=== PATIENT | male | born 1955 | race African-American/Black ===

== ENCOUNTER → 2020-05-14 | Outpatient (CLI) | payer OTHER | LOC: LAB 16:01 | PROVIDERS: ATTEND Internal Medicine Gastroenterology | DX: Z01.812 Encounter for preprocedural laboratory examination (principal); Z12.11 Encounter for screening for malignant neoplasm of colon; Z20.828 Contact with and (suspected) exposure to other viral communicable diseases | CPT/HCPCS: U0003 ==

== ENCOUNTER → 2020-05-21 | Outpatient (CLI) | payer OTHER, MEDICARE | LOC: LAB 10:58 | PROVIDERS: ATTEND Internal Medicine Gastroenterology | DX: Z01.812 Encounter for preprocedural laboratory examination (principal); Z20.828 Contact with and (suspected) exposure to other viral communicable diseases | CPT/HCPCS: U0003 ==

== ENCOUNTER → 2020-05-24 | Day surgery (SDC) | payer OTHER, MEDICARE ==
[~2020-05-24] MED LIST: AMLO-186 PO; APIX5TAB PO; ASPI-630 PO; CARV6.25 PO; IV RINGERS,LACTATED 1000ML 1,000 ML IV SCH; LIDOCAINE 2% PF 5 ML VIAL. ONE; MYCO250C PO; OMEP20TA63 PO; PRED2.5T PO; PROPOFOL 10 MG/ML (20ML) VIAL. IV ONE; SITA50TA PO; TACR0.5C2 PO
--- NOTE | 2020-05-24 14:31 | PDOC4 ---
PROCEDURE Procedure Colon with cold snare/clip Indication: colorectal cancer screening Meds: per anesthesia Findings: JAVIER---surgically absent prostate. --"Scope advanced to cecum. Mucosa normal. Diverticulosis throughout. 10mm polyp, mid-transverse, removed with cold snare; some bleeding and clipped x 1 with cessation. Internal hemorrhoids on retroflex. Sawyer. well. IMP: One polyp, removed. Diverticulosis Internal hemorrhoids. REC: Resume meds, diet. Await path. F/u in 2 weeks. Repeat exam in 5 years. NADEEM AYALA MD May 24, 2020 14:31
[2020-05-24 15:00] VITALS: BP 108/69
--- NOTE | 2020-05-27 15:08 | PATHOLOGY ---
[facility] Accession Number: [id number] . 01 Material submitted: . colon - MID TRANSVERSE COLON POLYP. Modifiers: mid, transverse . 01 Clinical history: . SCREENING . 02 Diagnosis: Colon biopsies, mid transverse colon polyp: - Tubular adenoma. (JPM:[facility]; 05/27/2020) S 05/27/2020 1044 Local . 02 Comment: There is no high grade dysplasia or evidence of malignancy. (JPM:[facility]; 05/27/2020) . 02 Electronically signed: . Alexis Brand MD, Pathologist NPI- [id number] . 01 Gross description: . The specimen is received in formalin, labeled "Matt Haroldo, mid transverse colon polyp". Received are two segments of pale trujillo soft tissue ranging in size from 0.3 to 0.6 cm in maximum dimensions. The specimen is submitted entirely in cassette A1. ([facility]; 05/26/2020) QA/[facility] 05/26/2020 1333 Local . 02 Pathologist provided ICD-10: D12.3 . 02 CPT . 192163 Specimen Comment: A courtesy copy of this report has been sent to [phone] Specimen Comment: 1112 Specimen Comment: Report sent to / DR GOODMAN Performed at: 01 [facility] [address], [place] [id number] MD Rj Muse MD Phone: [phone] Performed at: 02 [facility] [address] [place], [place] [id number] MD Alexis Brand MD Phone: [phone]
== END | disposition home or self-care (01) ==
LOC: ENDOS 13:10
PROVIDERS: ATTEND Internal Medicine Gastroenterology
DX: Z12.11 Encounter for screening for malignant neoplasm of colon (principal); D12.3 Benign neoplasm of transverse colon; K64.0 First degree hemorrhoids; K57.30 Diverticulosis of large intestine without perforation or abscess without bleeding; K21.9 Gastro-esophageal reflux disease without esophagitis; K63.89 Other specified diseases of intestine; I10 Essential (primary) hypertension; E78.00 Pure hypercholesterolemia, unspecified; E11.9 Type 2 diabetes mellitus without complications; M19.90 Unspecified osteoarthritis, unspecified site; Z79.82 Long term (current) use of aspirin; Z79.84 Long term (current) use of oral hypoglycemic drugs; Z79.899 Other long term (current) drug therapy; Z72.89 Other problems related to lifestyle; Z87.891 Personal history of nicotine dependence; Z98.890 Other specified postprocedural states; Z86.010 Personal history of colon polyps; Z90.79 Acquired absence of other genital organ(s)
CPT/HCPCS: 45385; 88305; J2704; 45384

== ENCOUNTER → 2020-06-18 | Outpatient (CLI) | payer OTHER, MEDICARE ==
[2020-05-24 15:00] VITALS: BP 108/69
[~2020-06-18] MED LIST changes: -IV RINGERS,LACTATED 1000ML 1,000 ML IV SCH; -LIDOCAINE 2% PF 5 ML VIAL. ONE; -PROPOFOL 10 MG/ML (20ML) VIAL. IV ONE
== END ==
LOC: LAB 15:41
PROVIDERS: ATTEND Internal Medicine Gastroenterology
DX: Z01.812 Encounter for preprocedural laboratory examination (principal); R13.10 Dysphagia, unspecified; Z20.828 Contact with and (suspected) exposure to other viral communicable diseases
CPT/HCPCS: U0003

== ENCOUNTER → 2020-06-21 | Day surgery (SDC) | payer OTHER, MEDICARE ==
[~2020-06-21] MED LIST changes: +IV RINGERS,LACTATED 1000ML 1,000 ML IV SCH; +LIDOCAINE 2% PF 5 ML VIAL. ONE; +PROPOFOL 10 MG/ML (20ML) VIAL. IV ONE
--- NOTE | 2020-06-21 12:53 | PDOC1 ---
History and Physical Date of Admission Date of Admission DATE: 06/21/20 TIME: 12:45 Identification/Chief Complaint Chief Complaint Dysphagia Source Source: Chart review, Patient History of Present Illness History of Present Illness Intermittent dysphagia. History of heartburn; currently on PPI. Some improvement, but not total. Remotely had EGD; findings not recalled as serious. H/o HCV, successfully treated at . H/o colon polyp 2008. Past Medical History Cardiovascular: HTN, Hyperlipidemia Renal/: Chronic renal failure (post-transplant) Endocrine: Diabetes Past Surgical History Past Surgical History: Other (kidney transplant) Family History Family History Nothing GI-related. Social History Smoke: No ALCOHOL: rare Drugs: None Current Medications Current Medications Current Medications Ringer's Solution 1,000 ml @ 50 mls/hr Q20H IV ; Start 06/21/20 at 07:15; Stop 06/21/20 at 19:14 Active Scripts Active Reported Coreg (Carvedilol) 6.25 Mg Tablet 6.25 Mg PO BIDWMEALS Prednisone 2.5 Mg Tablet 5 Mg PO DAILY Eliquis (Apixaban) 5 Mg Tablet 5 Mg PO DAILY Aspirin 81 Mg Tab.chew 1 Tab PO DAILY Januvia (Sitagliptin Phosphate) 50 Mg Tablet 25 Mg PO DAILY Prilosec Otc (Omeprazole Magnesium) 20 Mg Tablet.dr 1 Tab PO DAILY 30 Days Amlodipine Besylate 5 Mg Tablet 5 Mg PO DAILY Cellcept (Mycophenolate Mofetil) 250 Mg Capsule 2 Cap PO BID Tacrolimus 0.5 Mg Capsule 0.5 Mg PO BID Allergies Allergies: Coded Allergies: No Known Drug Allergies (Unverified , 05/24/20) ROS Review of System Otherwise negative. Physical Exam General: Alert, Oriented X3, Cooperative, No acute distress HEENT: PERRLA, EOMI Lungs: Clear to auscultation Heart: S1S2, RRR, no gallops, no murmurs Abdomen: Normal bowel sounds, Soft, No tenderness, No hepatosplenomegaly, No masses Rectal Exam: deferred Extremities: No clubbing, No cyanosis, No edema Skin: No significant lesion Neuro: Normal gait, Normal speech, Strength at 5/5 X4 ext, Normal tone, Sensa tion intact, Cranial nerves 3-12 NL, Reflexes 2+ Psych/Mental Status: Mental status NL, Mood NL Vitals Vitals See nursing notes. VTE Prophylaxis Ordered VTE Prophylaxis Devices: No VTE Pharmacological Prophylaxi: No Assessment/Plan Assessment/Plan IMP: Dysphagia PLAN: EGD. NADEEM AYALA MD Jun 21, 2020 12:53
--- NOTE | 2020-06-21 13:54 | PDOC4 ---
PROCEDURE Procedure EGD Indication: dysphagia Meds: per anesthesia Findings: E--Healing reflux at 45cm, probably B-C at baseline. G--Scattered erosions, antrum. Biopsies taken. D--Normal to second portion. --as did not hold his Eliquis, no empiric dilation. Sawyer. well. IMP: GERD Non-specific antral erosions. REC: Continue PPI. Await biopsies. F/u in 2 weeks. Resume diet, other meds. NADEEM AYALA MD Jun 21, 2020 13:54
[2020-06-21 14:17] VITALS: BP 128/78
--- NOTE | 2020-06-24 15:08 | PATHOLOGY ---
[facility] Accession Number: [id number] . 01 Material submitted: . stomach - ANTRAL BIOPSY . 01 Clinical history: . DYSPHAGIA . 02 Diagnosis: Gastric biopsies, antrum: - Chronic gastritis, mild, focally active, with focal intestinal metaplasia. (JPM:[facility] 06/24/2020) [facility] 06/24/2020 0910 Local . 02 Comment: Sections of the gastric biopsy reveal segments of gastric antral/body transition mucosa showing congestion and focally active mild chronic inflammation. There is focal intestinal metaplasia. A properly controlled immunoperoxidase stain for Helicobacter is negative for Helicobacter organisms. (JPM:[facility] 06/24/2020) . Special stain performed: Immunoperoxidase stain for Helicobacter on A1. . 02 Electronically signed: . Alexis Brand MD, Pathologist NPI- [id number] . 01 Gross description: . The specimen is received in formalin, labeled "Haroldo, Matt, antral BX" and consists of 2 fragments of pink-trujillo tissue measuring 0.5 x 0.2 cm and 0.8 x 0.2 cm which are entirely submitted in A1. ([facility]; 06/23/2020) SYU/SYU 06/23/2020 1711 Local . 02 Pathologist provided ICD-10: K29.50 . 02 CPT . 247520, C99472 Specimen Comment: A courtesy copy of this report has been sent to [phone] Specimen Comment: 1112 Specimen Comment: Report sent to / DR GOODMAN Performed at: 01 [facility] [address], [place], [place] [id number] MD Rj Muse MD Phone: [phone] Performed at: [address] [facility] [address] [place], [place] [id number] MD Alexis Brand MD Phone: [phone]
== END | disposition home or self-care (01) ==
LOC: ENDOS 12:38
PROVIDERS: ATTEND Internal Medicine Gastroenterology
DX: R13.10 Dysphagia, unspecified (principal); K21.00 Gastro-esophageal reflux disease with esophagitis, without bleeding; K31.89 Other diseases of stomach and duodenum; K29.50 Unspecified chronic gastritis without bleeding; I10 Essential (primary) hypertension; E78.00 Pure hypercholesterolemia, unspecified; E11.9 Type 2 diabetes mellitus without complications; Z87.891 Personal history of nicotine dependence; Z79.899 Other long term (current) drug therapy; Z79.84 Long term (current) use of oral hypoglycemic drugs; Z79.82 Long term (current) use of aspirin; Z98.890 Other specified postprocedural states; Z72.89 Other problems related to lifestyle
CPT/HCPCS: 43239; J2704; 88305; 88342

== ENCOUNTER → 2020-07-30 | Outpatient (CLI) | payer OTHER, MEDICARE ==
[2020-06-29 19:50] VITALS: BP 177/91
[~2020-07-30] MED LIST changes: +AMLO10TA4 PO; +ATOR20TA58 PO; +CARV25TA PO; +HYDR-2761 PO; -IV RINGERS,LACTATED 1000ML 1,000 ML IV SCH; -LIDOCAINE 2% PF 5 ML VIAL. ONE; +MAGN400T5 PO; +MYCOPHENOLIC ACID; +OMEP40CA7 PO; +PRED-220 PO; -PROPOFOL 10 MG/ML (20ML) VIAL. IV ONE
== END ==
LOC: LAB 15:15
PROVIDERS: ATTEND Specialist
DX: Z01.812 Encounter for preprocedural laboratory examination (principal); Z20.828 Contact with and (suspected) exposure to other viral communicable diseases
CPT/HCPCS: U0003

== ENCOUNTER 2020-08-04 07:33 | Day surgery (SDC) | payer MEDICARE, OTHER ==
[~2020-08-04] VITALS: Ht 190.5 cm; Wt 102.1 kg
--- NOTE | 2020-08-04 06:55 | PREOP HP ---
DATE OF SERVICE: 07/21/2020 HISTORY OF PRESENT ILLNESS: The patient comes in with recurrent pain on the medial portion of the left buttock and also the left groin, this is recurrent. He gets these abscesses, they rupture and cause a lot of pain and discomfort and interferes with his job. PAST MEDICAL HISTORY: Shows a pilonidal surgery done many years ago, but he still has his abscess. He also has had 2 years ago kidney transplant, and about 6 years ago, had a coronary bypass surgery for four bad arteries. He is doing well since then and is on Eliquis and aspirin at the present time. He has no other diseases to his knowledge. MEDICATIONS: He takes no other medication. ALLERGIES: He has no allergies. SOCIAL HISTORY: Shows that he does not smoke, drink or use illicit drugs. FAMILY HISTORY: There is no family history. REVIEW OF SYSTEMS: Presently is negative, but he does have a history of recurrent pain in the left groin and left medial buttock. PHYSICAL EXAMINATION: GENERAL: Shows an alert male, in no acute distress. HEAD, EYES, NOSE AND THROAT: Grossly normal. CHEST: Clear to auscultation. HEART: Had no murmurs, heaves, or friction rubs. ABDOMEN: Not examined. EXTREMITIES: Grossly normal. BACK: Examination of the back did show on the buttocks about 5-6 cm below the crease on the left side, there is a thickening there. It is not very painful, but there is a definite thickening there. In the left groin, there is also what looks like a chronic sinus tract or infection and is causing pain. These have been drained over and over and they still exist. IMPRESSION: 1. End-stage renal disease. 2. Arteriosclerotic heart disease. 3. Abscess, right groin. 4. Pilonidal cyst. MAURA ANGEL MD DR: DENISE/bryan JOB#: [id number] / [id number] STAN
[~2020-08-04 07:33] MED LIST changes: -AMLO10TA4 PO; -ATOR20TA58 PO; -CARV25TA PO; -HYDR-2761 PO; +HYDROmorphone 2 MG/ML VIAL IVP PRN; +IV RINGERS,LACTATED 1000ML 1,000 ML IV SCH; -MAGN400T5 PO; -MYCOPHENOLIC ACID; -OMEP40CA7 PO; -PRED-220 PO; +PROCHLORPERAZINE 10 MG/2 ML VIAL. IVP PRN; +ceFAZolin SODIUM IV Push 1 GM VIAL. IVP PRN; +fentaNYL PF VIAL 100 MCG/2 ML VIAL IVP PRN
[2020-08-04] MEDS ORDERED: INSULIN LISPRO 100 UNIT/ML 3ML VIAL for OP,RR ONLY. SQ PRN (08:30)
[2020-08-04 08:31] LABS: BASO # 0.1 x10^3/uL (0.0-0.2); BASO % 1 % (0-3); EOS # 0.1 x10^3/uL (0.0-0.7); EOS % 2 % (0-3); HEMATOCRIT 44.4 % (39.0-53.0); LYMPH # 1.9 x10^3/uL (1.0-4.8); LYMPH % 33 % (24-48); MEAN CORPUSCULAR HEMOGLOBIN 29 pg (25-35); MEAN CORPUSCULAR HGB CONC 34 g/dL (31-37); MEAN CORPUSCULAR VOLUME 87 fL (79-100); MONO # 0.5 x10^3/uL (0.0-1.1); MONO % 8 % (0-9); NEUT # 3.1 x10^3/uL (1.8-7.7); NEUT % 56 % (31-73); PLATELET COUNT 143 x10^3/uL (140-400); RED BLOOD COUNT 5.09 x10^6/uL (4.30-5.70); RED CELL DISTRIBUTION WIDTH 15.5 % (11.5-14.5); WHITE BLOOD COUNT 5.6 x10^3/uL (4.0-11.0)
[2020-08-04 08:42] LABS: PROTHROMBIN TIME PATIENT 14.2 SEC (11.7-14.0)
[2020-08-04] MEDS ORDERED: ROCURONIUM 50 MG/5 ML VIAL. ONE (08:50)
[2020-08-04] MEDS ORDERED: fentaNYL PF VIAL 100 MCG/2 ML VIAL ONE ×2 (08:50→11:23)
[2020-08-04] MEDS ORDERED: SUCCINYLCHOLINE 200 MG/10 ML VIAL. ONE (08:50)
[2020-08-04] MEDS ORDERED: PROPOFOL 10 MG/ML (20ML) VIAL. IV ONE ×2 (08:53→10:14)
[2020-08-04] MEDS ORDERED: DEXAMETHASONE SOD PHOS 4 MG/ML VIAL ONE (08:53)
[2020-08-04] MEDS ORDERED: LIDOCAINE 2% PF 5 ML VIAL. ONE (08:53)
[2020-08-04] MEDS ORDERED: ONDANSETRON PF 4 MG/2 ML VIAL. ONE (08:54)
[2020-08-04 08:55] LABS: CALCIUM 9.8 mg/dL (8.5-10.1); CREATININE 1.1 mg/dL (0.7-1.3); GFR 80.8; POTASSIUM 3.5 mmol/L (3.5-5.1)
[2020-08-04 09:00] LABS: ALBUMIN 3.5 g/dL (3.4-5.0); TOTAL BILIRUBIN 0.9 mg/dL (0.2-1.0)
--- NOTE | 2020-08-04 09:08 | PDOC ---
SURGICAL PROGRESS NOTE DATE: 08/04/20 TIME: 09:06 Op Note: Surgeon..........................................Kurt Pre op diag..................................... pilonidal cyst and mass left upper thigh Post op diag....................................same Anesthesia......................................general Procedure.......................................excision pilonidal cyst and excision mass left upper thigh left Drains............................................1/4 inch floyd left thigh wound Blood loss.......................................15cc Fluids.............................................see anesthesia sheet Condition........................................satisfactory Vital Signs Vital Signs Date Time Temp Pulse Resp B/P (MAP) Pulse Ox O2 Delivery O2 Flow Rate FiO2 08/04/20 07:58 68 18 133/81 98 Room Air Labs Laboratory Tests Test 08/04/20 08:10 08/04/20 08:18 White Blood Count 5.6 x10^3/uL (4.0-11.0) Red Blood Count 5.09 x10^6/uL (4.30-5.70) Hemoglobin 15.0 g/dL (13.0-17.5) Hematocrit 44.4 % (39.0-53.0) Mean Corpuscular Volume 87 fL (79-100) Mean Corpuscular Hemoglobin 29 pg (25-35) Mean Corpuscular Hemoglobin Concent 34 g/dL (31-37) Red Cell Distribution Width 15.5 % (11.5-14.5) Platelet Count 143 x10^3/uL (140-400) Neutrophils (%) (Auto) 56 % (31-73) Lymphocytes (%) (Auto) 33 % (24-48) Monocytes (%) (Auto) 8 % (0-9) Eosinophils (%) (Auto) 2 % (0-3) Basophils (%) (Auto) 1 % (0-3) Neutrophils # (Auto) 3.1 x10^3/uL (1.8-7.7) Lymphocytes # (Auto) 1.9 x10^3/uL (1.0-4.8) Monocytes # (Auto) 0.5 x10^3/uL (0.0-1.1) Eosinophils # (Auto) 0.1 x10^3/uL (0.0-0.7) Basophils # (Auto) 0.1 x10^3/uL (0.0-0.2) Prothrombin Time 14.2 SEC (11.7-14.0) Prothromb Time International Ratio 1.1 (0.8-1.1) Activated Partial Thromboplast Time 32 SEC (24-38) Sodium Level 138 mmol/L (136-145) Potassium Level 3.5 mmol/L (3.5-5.1) Chloride Level 103 mmol/L (98-107) Carbon Dioxide Level 26 mmol/L (21-32) Anion Gap 9 (6-14) Blood Urea Nitrogen 18 mg/dL (8-26) Creatinine 1.1 mg/dL (0.7-1.3) Estimated GFR (Cockcroft-Gault) 80.8 BUN/Creatinine Ratio 16 (6-20) Glucose Level 98 mg/dL (70-99) Calcium Level 9.8 mg/dL (8.5-10.1) Total Bilirubin 0.9 mg/dL (0.2-1.0) Aspartate Amino Transf (AST/SGOT) 17 U/L (15-37) Alanine Aminotransferase (ALT/SGPT) 21 U/L (16-63) Alkaline Phosphatase 80 U/L (46-116) Total Protein 7.0 g/dL (6.4-8.2) Albumin 3.5 g/dL (3.4-5.0) Albumin/Globulin Ratio 1.0 (1.0-1.7) Glucose (Fingerstick) 109 mg/dL (70-99) Laboratory Tests Test 08/04/20 08:10 08/04/20 08:18 White Blood Count 5.6 x10^3/uL (4.0-11.0) Red Blood Count 5.09 x10^6/uL (4.30-5.70) Hemoglobin 15.0 g/dL (13.0-17.5) Hematocrit 44.4 % (39.0-53.0) Mean Corpuscular Volume 87 fL (79-100) Mean Corpuscular Hemoglobin 29 pg (25-35) Mean Corpuscular Hemoglobin Concent 34 g/dL (31-37) Red Cell Distribution Width 15.5 % (11.5-14.5) Platelet Count 143 x10^3/uL (140-400) Neutrophils (%) (Auto) 56 % (31-73) Lymphocytes (%) (Auto) 33 % (24-48) Monocytes (%) (Auto) 8 % (0-9) Eosinophils (%) (Auto) 2 % (0-3) Basophils (%) (Auto) 1 % (0-3) Neutrophils # (Auto) 3.1 x10^3/uL (1.8-7.7) Lymphocytes # (Auto) 1.9 x10^3/uL (1.0-4.8) Monocytes # (Auto) 0.5 x10^3/uL (0.0-1.1) Eosinophils # (Auto) 0.1 x10^3/uL (0.0-0.7) Basophils # (Auto) 0.1 x10^3/uL (0.0-0.2) Prothrombin Time 14.2 SEC (11.7-14.0) Prothromb Time International Ratio 1.1 (0.8-1.1) Activated Partial Thromboplast Time 32 SEC (24-38) Sodium Level 138 mmol/L (136-145) Potassium Level 3.5 mmol/L (3.5-5.1) Chloride Level 103 mmol/L (98-107) Carbon Dioxide Level 26 mmol/L (21-32) Anion Gap 9 (6-14) Blood Urea Nitrogen 18 mg/dL (8-26) Creatinine 1.1 mg/dL (0.7-1.3) Estimated GFR (Cockcroft-Gault) 80.8 BUN/Creatinine Ratio 16 (6-20) Glucose Level 98 mg/dL (70-99) Calcium Level 9.8 mg/dL (8.5-10.1) Total Bilirubin 0.9 mg/dL (0.2-1.0) Aspartate Amino Transf (AST/SGOT) 17 U/L (15-37) Alanine Aminotransferase (ALT/SGPT) 21 U/L (16-63) Alkaline Phosphatase 80 U/L (46-116) Total Protein 7.0 g/dL (6.4-8.2) Albumin 3.5 g/dL (3.4-5.0) Albumin/Globulin Ratio 1.0 (1.0-1.7) Glucose (Fingerstick) 109 mg/dL (70-99) Justicifation of Admission Dx: Justifications for Admission: Justification of Admission Dx: Yes MAURA ANGEL MD Aug 04, 2020 09:08
[2020-08-04] MEDS ORDERED: GLYCOPYRROLATE 1 MG/5 ML VIAL. ONE (09:11)
[2020-08-04] MEDS ORDERED: SEVOFLURANE > 120 MINUTES. IH ONE (09:35)
[2020-08-04] MEDS ORDERED: LIDOCAINE 2%/EPI 1:100,000 20 ML VIAL. ONE (09:38)
[2020-08-04] MEDS ORDERED: LIDOCAINE 1% Multi-Dose 20 ML VIAL. ONE (09:39)
[2020-08-04] MEDS ORDERED: PHENYLEPHRINE 10 MG/ML VIAL. ONE (09:42)
[2020-08-04] MEDS ORDERED: OXYTOCIN 10 UNIT/ML VIAL. ONE (09:42)
[2020-08-04] MEDS ORDERED: ceFAZolin SODIUM IV Push 1 GM VIAL. IVP ONE (10:07)
[2020-08-04] MEDS ORDERED: NEOSTIGMINE METHYLSULFATE 5 MG/5 ML SYRINGE. ONE (10:07)
--- NOTE | 2020-08-04 11:22 | DISCH ---
DISCHARGE INSTRUCTIONS Condition on Discharge Condition on Discharge: Stable Activity After Discharge Activity Instructions for Disc: Avoid exertion Diet after Discharge Additional Diet Restrictions: diet as pre op Wound Incision Care Other wound/incision instructi: jose prn keep dry and clean..may shower after 48 hours Follow-Up Follow up with: Make appt to see me in 5 days...Sunday MAURA ANGEL MD Aug 04, 2020 11:22
[2020-08-04] MEDS ORDERED: PROCHLORPERAZINE 10 MG/2 ML VIAL. ONE (11:24)
[2020-08-04] MEDS ORDERED: MORPHINE SULFATE 2 MG/ML VIAL. ONE (11:24)
[2020-08-04] MEDS: fentaNYL PF VIAL 100 MCG/2 ML VIAL IVP PRN ×2 (11:27→11:48)
[2020-08-04] MEDS: MORPHINE SULFATE 2 MG/ML VIAL. IVP PRN ×2 (11:31→11:49)
[2020-08-04] MEDS ORDERED: HYDROcodone/APAP 5/325MG 1 TAB TABLET PO ONE (11:45)
[2020-08-04] MEDS ORDERED: HYDR-2761 PO (11:55)
[2020-08-04 13:06] VITALS: BP 124/66
--- NOTE | 2020-08-04 23:52 | OP ---
DATE OF SURGERY: 08/04/2020 PREOPERATIVE DIAGNOSIS: Pilonidal cyst and right scrotal mass. POSTOPERATIVE DIAGNOSIS: Pilonidal cyst and right scrotal mass. ANESTHESIA: General. SURGEON: Rian Angel M.D. PROCEDURE: Excision of pilonidal cyst and excision mass, left scrotum. TECHNIQUE: Under general anesthesia, the patient was in the prone position to do the pilonidal first as there was no pus purulent material or other things there. He had had previous infections and even surgery there. The involved area, where the thickness was and the last infection was, was just the crease of the buttocks going down on the patient's left side. As such, using a 15 blade and then a 10 blade, we then made an incision encompassing all of the tissue there and the skin widely and carried this down through the skin. We used Metzenbaum scissors to slowly cut all of the tissue away that had been inflamed, infected or scarred there. This went up to the crease of the buttocks where the previous incision was. This area was in the subcutaneous and totally excised. The resultant defect was inspected. Luckily, there were very little bleeding. As such, we then placed 3-0 nylon sutures deep and through and through there. We closed the wound with these interrupted sutures and the procedure was terminated as the dressing was applied. We then placed the patient face up, so that we could do the scrotal mass and properly prepped it and draped it in a normal fashion. There was some purulent material there and this was cultured. This mass extended, was at the superior portion of the scrotum on the left and close to the cord structures. We made an incision encompassing all of the tissue that had been involved in a fusiform fashion. This extended into the subcutaneous and as such, we used a 15 blade to make an incision through the skin. We used Metzenbaum scissors to cut it away from the surrounding structures and it should be noted that this was close to the veins and the artery and these were kept out of the field. The mass, which was about 3-4 cm in size, was then totally excised. The resultant pressure was used to control the bleeding and the procedure was now closed. In this area, it should be noted that cultures were taken and aerobic and anaerobic and also we did place a Eugene drain in this area. We closed the wound with 3-0 nylon sutures and the procedure was terminated as the sterile dressing was applied. The total blood loss was probably 5-6 mL. Fluids given can be obtained from the anesthesia sheet. The drain was the quarter-inch Tatiana drain placed in the scrotum. Condition of the patient was satisfactory as he has returned to the recovery room. RIAN ANGEL MD DR: DENISE/bryan JOB#: [id number] / [id number] STAN
--- NOTE | 2020-08-09 18:10 | PATHOLOGY ---
[facility] Accession Number: [id number] . 01 Material submitted: . PART A: gluteal cleft - PILONIDAL CYST STITCH AT PROXIMAL AREA PART B: inguinal area - LEFT GROIN MASS, STITCH AT PROXIMAL AREA. Modifiers: left . 01 Clinical history: . GLUTEAL ABSCESS, LEFT GROIN MASS . 02 Diagnosis: A. Skin and subcutaneous tissue, pilonidal cyst excision: - Pilonidal sinus, showing chronic inflammation, focal foreign body giant cell reaction, and reactive fibrosis. . B. Skin and subcutaneous tissue, left groin mass excision: - Follicular cyst, ruptured, showing acute and chronic inflammation and reactive fibrosis. (JPM:[facility]; 08/09/2020) S 08/09/2020 1338 Local . 02 Comment: There is no evidence of malignancy. (JPM:[facility]; 08/09/2020) . 02 Electronically signed: . Alexis Brand MD, Pathologist NPI- [id number] . 01 Gross description: . A. The specimen is received in formalin, labeled "Matt Zarco, pilonidal cyst, stitch at proximal area". Received is an irregular excision of harrison-brown skin with attached underlying fibroadipose tissue measuring 4.8 x 2.3 x 2.1 cm in greatest dimensions with a suture placed near one tip designating as the proximal aspect. This tip will further be designated as the 12:00 margin. The surgical margins are inked as follows: 12 to 3:00-yellow, 3 to 6:00-blue, and 6 to 12:00-black. Sectioning reveals pale trujillo to yellow-trujillo cut surfaces throughout with no grossly distinct cyst or sinus tract. The specimen is submitted representatively in cassettes A1 through A4. . B. The specimen is received in formalin, labeled "Matt Zarco, left groin mass, stitch at proximal area". Received is an irregular excision of harrison-brown skin with attached underlying soft tissue measuring 3.0 x 2.5 x 1.4 cm in greatest dimensions with a suture placed at one aspect designating this as the proximal margin, which will further be designated as the 12:00 margin. The surgical margins are inked as follows: 12 to 3:00-yellow, 3 to 6:00-blue, and 6 to 12:00-black. Sectioning reveals a unilocular cystic structure measuring 0.8 cm in length by 0.5 cm in width. The remaining cut surfaces display a pink-harrison to yellow-trujillo appearance. The specimen is submitted representatively in cassettes B1 through B3. ([facility]; 08/06/2020) QA/QA 08/09/2020 1336 Local . 02 Pathologist provided ICD-10: L05.91, L72.8 . 02 CPT . 145020, 300255 Specimen Comment: A courtesy copy of this report has been sent to [phone] Specimen Comment: 1112 Specimen Comment: Report sent to / DR GOODMAN Specimen Comment: A duplicate report has been generated due to demographic updates. Performed at: 01 [facility] [address], [place] [id number] MD Rj Muse MD Phone: [phone] Performed at: 02 [facility] [address] [place], [place] [id number] MD Alexis Brand MD Phone: [phone]
[2020-09-08] MEDS ORDERED: OMEP40CA7 PO (08:44)
[2020-12-10] MEDS ORDERED: MYCOPHENOLIC ACID (06:22)
[2020-12-10] MEDS ORDERED: TACR0.5C2 PO (06:22)
== END 2020-08-04 13:32 | disposition home or self-care (01) ==
LOC: SURG 07:33
PROVIDERS: ATTEND Specialist
DX: L05.91 Pilonidal cyst without abscess (principal); L72.8 Other follicular cysts of the skin and subcutaneous tissue; I12.0 Hypertensive chronic kidney disease with stage 5 chronic kidney disease or end stage renal disease; E11.22 Type 2 diabetes mellitus with diabetic chronic kidney disease; N18.6 End stage renal disease; K21.9 Gastro-esophageal reflux disease without esophagitis; I25.10 Atherosclerotic heart disease of native coronary artery without angina pectoris; E78.00 Pure hypercholesterolemia, unspecified; Z99.2 Dependence on renal dialysis; Z79.899 Other long term (current) drug therapy; Z79.84 Long term (current) use of oral hypoglycemic drugs; Z72.89 Other problems related to lifestyle; Z98.890 Other specified postprocedural states; Z87.891 Personal history of nicotine dependence
CPT/HCPCS: 11424; 11770; 36415; 80053; 82962; 85025; 85610; 85730; 87071; 87075; 88304; A4461; J0330; J0690; J0780; J1100; J2270; J2370; J2405; J2590; J2704; J2710; J3010; J3490; 87076; 87077

== ENCOUNTER 2020-09-07 22:25 | Observation (INO) | payer OTHER, MEDICARE ==
[~2020-09-07] VITALS: Ht 190.5 cm; Wt 104.5 kg
[~2020-09-07 22:25] MED LIST changes: +HYDR-2761 PO; -HYDROmorphone 2 MG/ML VIAL IVP PRN; -IV RINGERS,LACTATED 1000ML 1,000 ML IV SCH; -PROCHLORPERAZINE 10 MG/2 ML VIAL. IVP PRN; -ceFAZolin SODIUM IV Push 1 GM VIAL. IVP PRN; -fentaNYL PF VIAL 100 MCG/2 ML VIAL IVP PRN
--- NOTE | 2020-09-07 22:47 | PHYS DOC ---
Past Medical History Past Medical History: Cancer, High Cholesterol, Hypertension Past Surgical History: Coronary Bypass Surgery Additional Past Surgical Histo: KIDNEY TRANSPLANT Smoking Status: Never Smoker Alcohol Use: Occasionally General Adult EDM: Chief Complaint: CHEST PAIN-CARDIAC NATURE HPI: HPI: 65-year-old male with significant history of hypertension, CAD s/p CABG, AF on Eliquis, ischemic cardiomyopathy s/p [employer] ICD, end-stage renal disease s/p renal transplant, who presents for evaluation of palpitations that began earlier this evening. He states that he developed onset of palpitations without chest pain or dyspnea that began at rest this evening, that resolved prior to presentation. He also reports a similar episode last night, for which he notified EMS. He also states that he believes his defibrillator may have fired last night as well. Palpitations were a/w BL chest pressure, with symptoms resolved by time of my evaluation in the ED. Review of Systems: Review of Systems: Gen: No fever, chills. Eyes: No blurred vision, diplopia. ENT: No nasal congestion, sore throat. CV: No CP. Reports palpitations. Resp. No SOB, cough. GI: No abd pain, N/V. Neuro: No CASTRO, dizziness, weakness. MSK: No myalgia, arthralgia, back pain. Skin: No acute rash or lesion. Remainder of systems reviewed and negative unless otherwise specified. Heart Score: Risk Factors: Risk Factors: DM, Current or recent (<one month) smoker, HTN, HLP, family history of CAD, obesity. Risk Scores: Score 0 - 3: 2.5% MACE over next 6 weeks - Discharge Home Score 4 - 6: 20.3% MACE over next 6 weeks - Admit for Clinical Observation Score 7 - 10: 72.7% MACE over next 6 weeks - Early Invasive Strategies Allergies: Allergies: Allergies Coded Allergies Type Severity Reaction Last Updated Verified No Known Drug Allergies 08/04/20 No Physical Exam: PE: Gen: NAD. Well nourished. Head: NC/AT. Eyes: No scleral icterus. No conjunctival injection. ENT: MMM. Posterior OP clear. Neck: Supple. CV: RRR. Peripheral pulses intact. Chest: Right upper chest device in place. Sternotomy scar. Resp: CTAB. Abd: Soft. NT. ND. MSK: No peripheral cyanosis. Left upper extremity AV fistula, no longer in use. Neuro: A&Ox3. Strength & sensation grossly intact throughout. Skin. Warm. Dry. Psych: Appropriate mood & affect. Current Patient Data: Labs: Laboratory Tests Test 09/07/20 22:40 White Blood Count 6.6 x10^3/uL (4.0-11.0) Red Blood Count 5.12 x10^6/uL (4.30-5.70) Hemoglobin 15.2 g/dL (13.0-17.5) Hematocrit 45.2 % (39.0-53.0) Mean Corpuscular Volume 88 fL (79-100) Mean Corpuscular Hemoglobin 30 pg (25-35) Mean Corpuscular Hemoglobin Concent 34 g/dL (31-37) Red Cell Distribution Width 15.6 % (11.5-14.5) Platelet Count 165 x10^3/uL (140-400) Neutrophils (%) (Auto) 67 % (31-73) Lymphocytes (%) (Auto) 24 % (24-48) Monocytes (%) (Auto) 6 % (0-9) Eosinophils (%) (Auto) 2 % (0-3) Basophils (%) (Auto) 1 % (0-3) Neutrophils # (Auto) 4.4 x10^3/uL (1.8-7.7) Lymphocytes # (Auto) 1.6 x10^3/uL (1.0-4.8) Monocytes # (Auto) 0.4 x10^3/uL (0.0-1.1) Eosinophils # (Auto) 0.1 x10^3/uL (0.0-0.7) Basophils # (Auto) 0.1 x10^3/uL (0.0-0.2) Sodium Level 135 mmol/L (136-145) Chloride Level 101 mmol/L (98-107) Carbon Dioxide Level 26 mmol/L (21-32) Anion Gap 8 (6-14) Blood Urea Nitrogen 15 mg/dL (8-26) Estimated GFR (Cockcroft-Gault) 80.8 Glucose Level 158 mg/dL (70-99) Calcium Level 9.4 mg/dL (8.5-10.1) Troponin I Quantitative < 0.017 ng/mL (0.000-0.055) EKG: EKG: EKG performed at 2232. Sinus rhythm. Heart rate 76. Right bundle branch block morphology with a QRS duration of 142 ms. Otherwise normal intervals. No STEMI. Interpreted by me. Radiology/Procedures: Radiology/Procedures: Study: XR CHEST 1V Indication: Palpitations. Comparison: None recently. Findings: Right chest wall multilead pacer/AICD. Status post median sternotomy. The cardiomediastinal silhouette is within the broad range of normal for size given AP technique. No overt central vascular congestion. No confluent airspace infiltrate, layering effusion or pneumothorax. Mild asymmetric elevation of the right hemidiaphragm. Impression: No acute radiographic abnormality of the chest. Electronically signed by: YUKO GONZALES MD (09/07/2020 11:36 PM) [facility] Course & Med Decision Making: Course & Med Decision Making Pertinent Labs and Imaging studies reviewed. (See chart for details) In summary, 65M with PMH of HTN, CAD s/p CABG, ICM s/p [employer] ICD, p/w palpitations, with patient stating he felt as if device discharged last night. No CP, SOA. HDS. EKG with RBBB. Labs notable for hypoMg 1.4 repleted IV. Trop neg. Remains well appearing and nontoxic. Bedside interrogation shows device in backup VVI mode. [employer] rep to come manually interrogate device. 0057: Spoke with [employer] rep, who restored device settings with device check/leads/battery OK. Unfortunately, tracings can not be obtained from when device was in backup VVI. As I am unable to discern between possible benign vs. life threatening dysrhythmia, I will opt to admit the patient for monitoring and cardiology consultation in the morning. PMD is Dr. Chong. Dorene Disclaimer: Dorene Disclaimer: This electronic medical record was generated, in whole or in part, using a voice recognition dictation system. Departure Departure Impression: Primary Impression: Palpitations Additional Impressions: ICD (implantable cardioverter-defibrillator) discharge Hypomagnesemia Disposition: ADMITTED INPT THIS HOSP Condition: STABLE Referrals: LUCY CHONG MD (PCP) CARRIE RAPP DO Sep 07, 2020 22:47
--- NOTE | 2020-09-07 22:55 | EKG ---
[facility] [address] [place] [address] Test Date: 2020-09-07 Test Time: 22:32:42 Pat Name: RACHEL RODRIGUES Department: Room: Gender: M Volumetric Weigher: : 1955 Requested By: CARRIE RAPP Order Number: [id number] Reading MD: Measurements Intervals [place] Rate: 76 P: -27 AK: 130 QRS: -39 QRSD: 142 T: 73 QT: 364 QTc: 414 Interpretive Statements SINUS RHYTHM LEFT ATRIAL ABNORMALITY ABNORMAL LEFT AXIS DEVIATION LEFT ANTERIOR FASCICULAR BLOCK NON SPECIFIC INTRAVENTRICULAR BLOCK RVH WITH REPOLARIZATION ABNORMALITY QRS(T) CONTOUR ABNORMALITY CONSIDER ANTEROSEPTAL MYOCARDIAL DAMAGE ABNORMAL ECG RI6.02 No previous ECG available for comparison
[2020-09-07 22:59] LABS: BASO # 0.1 x10^3/uL (0.0-0.2); BASO % 1 % (0-3); EOS # 0.1 x10^3/uL (0.0-0.7); EOS % 2 % (0-3); HEMATOCRIT 45.2 % (39.0-53.0); HEMOGLOBIN 15.2 g/dL (13.0-17.5); LYMPH # 1.6 x10^3/uL (1.0-4.8); LYMPH % 24 % (24-48); MEAN CORPUSCULAR HEMOGLOBIN 30 pg (25-35); MEAN CORPUSCULAR HGB CONC 34 g/dL (31-37); MEAN CORPUSCULAR VOLUME 88 fL (79-100); MONO # 0.4 x10^3/uL (0.0-1.1); MONO % 6 % (0-9); NEUT # 4.4 x10^3/uL (1.8-7.7); NEUT % 67 % (31-73); PLATELET COUNT 165 x10^3/uL (140-400); RED BLOOD COUNT 5.12 x10^6/uL (4.30-5.70); RED CELL DISTRIBUTION WIDTH 15.6 % (11.5-14.5); WHITE BLOOD COUNT 6.6 x10^3/uL (4.0-11.0)
[2020-09-07 23:09] LABS: CALCIUM 9.4 mg/dL (8.5-10.1); CREATININE 1.1 mg/dL (0.7-1.3); GFR 80.8; MAGNESIUM 1.4 mg/dL (1.8-2.4); POTASSIUM 4.1 mmol/L (3.5-5.1)
--- NOTE | 2020-09-07 23:38 | RAD ---
Study: XR CHEST 1V Indication: Palpitations. Comparison: None recently. Findings: Right chest wall multilead pacer/AICD. Status post median sternotomy. The cardiomediastinal silhouette is within the broad range of normal for size given AP technique. No overt central vascular congestion. No confluent airspace infiltrate, layering effusion or pneumothorax. Mild asymmetric elevation of the right hemidiaphragm. Impression: No acute radiographic abnormality of the chest. Electronically signed by: YUKO GONZALES MD (09/07/2020 11:36 PM) [facility]
[2020-09-07] MEDS ORDERED: MAGNESIUM SULFATE 2GM 50 ML IV ONE (23:45)
[2020-09-08] MEDS ORDERED: ONDANSETRON PF 4 MG/2 ML VIAL. IV PRN (01:30)
[2020-09-08 02:15] VITALS: BP 154/76
--- NOTE | 2020-09-08 02:54 | NUR ---
Admit from ED to [facility] room 263 via [facility]. A/O x 4 on arrival to floor. Stood from [facility] in [place] and ambulated to bed in room with steady gait. Denies pain at this time. Orientated to room and call light. Reviewed POC to include tele monitor and lab draws. Verbalized understanding. Resting in bed, eating box lunch. Call light at hand.
[2020-09-08 07:00] VITALS: BP 140/76
[2020-09-08] MEDS ORDERED: AMLO10TA4 PO (08:44)
[2020-09-08] MEDS ORDERED: PRED-220 PO (08:44)
[2020-09-08] MEDS ORDERED: CARV25TA PO (08:44)
[2020-09-08] MEDS ORDERED: OMEP40CA45 PO (08:44)
[2020-09-08] MEDS ORDERED: ATOR20TA58 PO (08:47)
[2020-09-08] MEDS ORDERED: MAGNESIUM SULFATE 2GM 50 ML IV ONE (09:15)
[2020-09-08] MEDS ORDERED: MAGN400T5 PO (09:43)
--- NOTE | 2020-09-08 09:45 | DISCH ---
DISCHARGE INSTRUCTIONS Condition on Discharge Condition on Discharge: Stable Activity After Discharge Activity Instructions for Disc: Avoid exertion Diet after Discharge Diet after Discharge: Cardiac (ADA) Additional Diet Restrictions: diet as pre op Checks after Discharge Checks after discharge: Check blood press - daily Contacting the after DC Call your doctor for: Concerns you may have Follow-Up Follow up with: Dr.Pratip Goodman in 1 week Follow Up With: GAMAL route salesman and driver LUCY GOODMAN MD Sep 08, 2020 09:45
--- NOTE | 2020-09-08 09:55 | PDOC ---
Provider Note Date of Service: DATE: 09/08/20 TIME: 09:54 Provider Note Combined H&P and discharge summary dictated #[id number] Justifications for Admission Other Justification LUCY GOODMAN MD Sep 08, 2020 09:55
[2020-09-08] MEDS ORDERED: predniSONE 10 MG TABLET PO SCH (10:00)
[2020-09-08] MEDS ORDERED: CARVEDILOL 12.5 MG TABLET. PO SCH (10:00)
[2020-09-08] MEDS ORDERED: ASPIRIN CHEWABLE 81 MG TABLET. PO SCH (10:00)
[2020-09-08] MEDS ORDERED: amLODIPine BESYLATE 10 MG TABLET PO SCH (10:00)
[2020-09-08] MEDS ORDERED: LINAGLIPTIN 5 MG TABLET PO SCH (10:00)
--- NOTE | 2020-09-08 10:21 | HP ---
ADMIT DATE: 09/08/2020 COMBINED HISTORY AND PHYSICAL AND DISCHARGE SUMMARY HISTORY OF PRESENT ILLNESS: This 65 years old male who has a history of end-stage renal disease and status post renal transplant and hypertension, coronary artery disease, status post coronary artery bypass graft, atrial fibrillation, on Eliquis, ischemic cardiomyopathy, status post [employer] ICD, started having palpitations yesterday evening and had 2 episodes where the ICD discharged. Because of the shocks, he came to the Emergency Room. He denies any chest pains, dyspnea, dizziness. In the Emergency Room, the patient was noted to have magnesium of 1.4. He was given 2 grams of IV magnesium. Other labs are stable. The device was interrogated, but it was in the backup mode and so it was not clear what caused the ICD to discharge. Because of the cardiac issues, the patient was admitted for further evaluation and management. REVIEW OF SYSTEMS: At present time, the patient denies any chest pains, palpitations, dyspnea, dizziness, nausea, vomiting, cold, cough or any other problems. PAST MEDICAL HISTORY: The patient has a history of hypertension, coronary artery disease, atrial fibrillation, ischemic cardiomyopathy, end-stage renal disease, hypertension, diabetes mellitus type 2, gastroesophageal reflux disease. SURGICAL HISTORY: Includes a renal transplant, history of colonic polyp in 2008, CABG, [employer] ICD. The patient has also been treated for hepatitis C virus at [facility]. FAMILY HISTORY: Reviewed and noncontributory. SOCIAL HISTORY: No history of smoking, alcoholism or drug abuse. MEDICATIONS: Reviewed. He is on triple immunosuppression for renal transplant including prednisone. The other 2 medications could not be placed in the chart. He is on apixaban and aspirin. Medications reviewed and reconciled. ALLERGIES: None known any. PHYSICAL EXAMINATION: VITAL SIGNS: Temperature 98.1, blood pressure 147/80 mmHg, pulse 86 per minute, respirations 18 per minute. GENERAL: The patient is an elderly male who is alert, oriented x 3 and not in acute distress. EYES: Pupils reacting to light. Conjunctivae pale. Sclerae muddy. HENT: Unremarkable. NECK: Supple. JVP normal. No thyromegaly. Trachea midline. CHEST: The patient has an ICD device in the right upper chest. No swelling or redness noted. CARDIOVASCULAR: S1, S2 regular. ABDOMEN: Soft, nontender, no guarding, no rigidity. Bowel sounds present. LUNGS: Decreased breath sounds at bases. Clear. EXTREMITIES: No edema, no cyanosis, no calf tenderness. CENTRAL NERVOUS SYSTEM: Alert and oriented. LABORATORY FINDINGS: WBC count 6.6, platelet count 165,000, hemoglobin 15.2. Sodium 135, potassium 4.1, glucose 158, magnesium 1.4, calcium 9.4. Troponin less than 0.017. BNP 218. IMPRESSION: 1. Cardiac arrhythmia type not clear because ICD is in backup mode. We will consult tourist information officer. 2. Hypomagnesemia. Replace magnesium. 3. ICD discharge. 4. Coronary artery disease. 5. Atrial fibrillation. 6. Diabetes mellitus. 7. Gastroesophageal reflux disease. 8. Hypertension. 9. Ischemic cardiomyopathy. 10. End-stage renal disease, status post renal transplant. PLAN: Consult Dr. Knox for cardiology evaluation and management. So far, cardiac enzymes are stable. Device was interrogated last night and it was in the backup mode. This will be reviewed by the tourist information officer. If the patient remains stable, we will discharge the patient to home later today. See me in the office in 1 week. The patient also states that he is scheduled for cataract removal tomorrow. I have discussed with the staff and will hold apixaban and aspirin for now and he is also being informed that he has to follow up with the Cardiology and the Ophthalmology instructions about aspirin and apixaban and how long to hold it. Replace IV magnesium and I will also start him on magnesium oxide 400 mg 3 times a day. See me in the office in 1 week. 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 At present time, the patient is clinically stable and if he remains stable, the patient will be discharged later home today. For details, please refer to the discharge instructions. Discharge management also 35 minutes. LUCY GOODMAN MD DR: DAISY/bryan JOB#: [id number] / [id number]
--- NOTE | 2020-09-08 10:30 | NUR ---
Nursing: Told to hold eliquis and aspirin per Castillo. Patient is having cataract surgery tomorrow
[2020-09-08 11:00] VITALS: BP 142/75
--- NOTE | 2020-09-08 11:28 | PDOC2 ---
DILLAN BOCANEGRA DINKEY OPERATOR SLAG 09/08/20 1128: CARDIAC CONSULT DATE OF CONSULT Date of Consult DATE: 09/08/20 TIME: 10:58 REASON FOR CONSULT Reason for Consult: Chest pain, palpitations, AICD REFERRING PHYSICIAN Referring Physician: Dr. Chong SOURCE Source: Chart review, Patient HISTORY OF PRESENT ILLNESS HISTORY OF PRESENT ILLNESS This is a 65 yo male who presented secondary to abnormal noise that he device was making. Has a history of CAD s/p CABG and ICM s/p AICD. Denies any chest pain, palpitations, dizziness, diaphoresis, or shortness of breath. He device did not fire. Was not shocked. His device continued to make interesting noise so he came to the ED for further evaluation and treatment. Device was checked upon arrival in ED with [employer]. Was noted to be in backup VVI mode and alert was sent to device international representative. Device was reset this morning and setting were restored. Device then functioning properly and battery life is adequate. Unfortunately, since device was wiped clean, unable to tell if patient had any arrhythmias recorded. PAST MEDICAL HISTORY Cardiovascular: AFIB, CAD, CHF, HTN, Hyperlipidemia GI: Diverticulosis, GERD Heme/Onc: Cancer (Parotid Gland) Hepatobiliary: Hep A/B/C (C) Renal/: Chronic renal insuff, Prostate Ca. Endocrine: Diabetes PAST SURGICAL HISTORY Past Surgical History: Pacemaker (AICD ), CABG, Other (prostatectomy ) FAMILY HISTORY Family History: Heart Disease SOCIAL HISTORY Smoke: No ALCOHOL: none Drugs: None Lives: with Family CURRENT MEDICATIONS CURRENT MEDICATIONS Current Medications Medications (Trade) Dose Ordered Sig/Jo Ann Route PRN Reason Start Time Stop Time Status Last Admin Dose Admin Magnesium Sulfate 50 ml @ 25 mls/hr 1X ONCE IV 09/07/20 23:45 09/08/20 01:44 DC 09/08/20 00:21 Magnesium Sulfate 50 ml @ 25 mls/hr 1X ONCE IV 09/08/20 09:15 09/08/20 11:14 09/08/20 09:52 Amlodipine Besylate (Norvasc) 10 mg DAILY PO 09/08/20 10:00 09/08/20 09:51 Prednisone (Prednisone) 5 mg DAILY PO 09/08/20 10:00 09/08/20 09:51 Carvedilol (Coreg) 25 mg BIDWMEALS PO 09/08/20 10:00 09/08/20 09:51 Linagliptin (Tradjenta) 5 mg DAILY PO 09/08/20 10:00 09/08/20 09:51 ALLERGIES ALLERGIES: Coded Allergies: No Known Drug Allergies (Unverified , 08/04/20) ROS Review of System 14 point ROS conducted with pertinent positives noted above in HPI PHYSICAL EXAM General: Alert, Oriented X3, Cooperative, No acute distress HEENT: Atraumatic Lungs: Clear to auscultation Heart: Regular rate, Other (vpaced ) Abdomen: Soft, No tenderness Extremities: No edema, Normal pulses Skin: No significant lesion Neuro: Normal speech, Sensation intact Psych/Mental Status: Mental status NL, Mood NL MUSCULOSKELETAL: Osteoarthritic changes both hands VITALS/I&O VITALS/I&O: Vital Signs Date Time Temp Pulse Resp B/P (MAP) Pulse Ox O2 Delivery O2 Flow Rate FiO2 09/08/20 09:51 80 09/08/20 07:00 98.4 18 140/76 (97) 100 Room Air 98.4 I & O 09/07/20 09/07/20 09/08/20 15:00 23:00 07:00 Intake Total 250 ml Balance 250 ml LABS Lab: Laboratory Tests Test 09/07/20 22:40 09/08/20 01:45 White Blood Count 6.6 x10^3/uL (4.0-11.0) Red Blood Count 5.12 x10^6/uL (4.30-5.70) Hemoglobin 15.2 g/dL (13.0-17.5) Hematocrit 45.2 % (39.0-53.0) Mean Corpuscular Volume 88 fL (79-100) Mean Corpuscular Hemoglobin 30 pg (25-35) Mean Corpuscular Hemoglobin Concent 34 g/dL (31-37) Red Cell Distribution Width 15.6 % (11.5-14.5) H Platelet Count 165 x10^3/uL (140-400) Neutrophils (%) (Auto) 67 % (31-73) Lymphocytes (%) (Auto) 24 % (24-48) Monocytes (%) (Auto) 6 % (0-9) Eosinophils (%) (Auto) 2 % (0-3) Basophils (%) (Auto) 1 % (0-3) Neutrophils # (Auto) 4.4 x10^3/uL (1.8-7.7) Lymphocytes # (Auto) 1.6 x10^3/uL (1.0-4.8) Monocytes # (Auto) 0.4 x10^3/uL (0.0-1.1) Eosinophils # (Auto) 0.1 x10^3/uL (0.0-0.7) Basophils # (Auto) 0.1 x10^3/uL (0.0-0.2) Sodium Level 135 mmol/L (136-145) L Potassium Level 4.1 mmol/L (3.5-5.1) Chloride Level 101 mmol/L (98-107) Carbon Dioxide Level 26 mmol/L (21-32) Anion Gap 8 (6-14) Blood Urea Nitrogen 15 mg/dL (8-26) Creatinine 1.1 mg/dL (0.7-1.3) Estimated GFR (Cockcroft-Gault) 80.8 Glucose Level 158 mg/dL (70-99) H Calcium Level 9.4 mg/dL (8.5-10.1) Magnesium Level 1.4 mg/dL (1.8-2.4) L Troponin I Quantitative < 0.017 ng/mL (0.000-0.055) < 0.017 ng/mL (0.000-0.055) VR-Cxv-V-Type Natriuretic Peptide 218 pg/mL (0-124) H Laboratory Tests 09/07/20 22:40 Laboratory Tests 09/07/20 22:40 ECHOCARDIOGRAM ECHOCARDIOGRAM 04/02/20 - 2-D + DOPPLER ECHOCARDIOGRAM The left ventricular size is normal. Moderate concentric hypertrophy. The left ventricular systolic function is normal. The visually estimated ejection f raction is 70%. Abnormal septal motion consistent with right ventricular pacing. The right ventricle is mildly dilated. The right ventricular systolic function is normal. Mild biatrial enlargement. No significant valve disease. Estimated Peak Systolic PA Pressure 26 mmHg Compared with study dated 06/20/19, no significant change is noted. ASSESSMENT/PLAN ASSESSMENT/PLAN 1. COMPUTER SOFTWARE ENGINEER-D device alert; noted in back VVI mode. Device was reset this morning and settings were restored. Device then functioning properly and battery life is adequate. Unfortunately, since device was wiped clean, unable to tell if patient had any arrhythmias recorded. Patient denies any shock therapy. AMI was ruled out. 2. CAD s/p CABG 07/2014. Follows with Dr. Acevedo with [facility] 3. H/o ischemic cardiomyopathy; s/p AICD ([employer] COMPUTER SOFTWARE ENGINEER-D). Most recent echo 04/04 with LV recovery with preserved LV systolic function as noted above. 4. PAFIB s/p previous CV. on Eliquis for stroke prohpylaxis. 5. Hypomagnesemia; replaced. 6. Hypertension; controlled 7. Hyperlipidemia; statin 8. Diabetes, II 9. ESRD s/p renal transplant 04/2017 10. H/p parotid gland CA Recommendations Secondary prevention BB for rate control Eliquis for stroke prophylaxis Follow up with primary machine trimmer upon discharge WIL LECHUGA MD 09/08/202008: CARDIAC CONSULT ASSESSMENT/PLAN ASSESSMENT/PLAN Patient seen and examined. Agree with TAR BOILER's assessment and plan. Device interrogation and reset as noted above CAD status clinically stable Ischemic cardiomyopathy with recent echo showing normalized LV systolic function PAF, continue eliquis for stroke prophylaxis Follow up with primary machine trimmer upon DC Thank you for your consultation DILLAN BOCANEGRA APRN Sep 08, 2020 11:28 WIL LECHUGA MD Sep 08, 2020 20:09
--- NOTE | 2020-09-08 13:23 | NUR ---
SS following for discharge planning. SS reviewed pt chart and discussed with pt RN. Pt is from home and is currently on room air. Discharge order on the chart for home with self care.
--- NOTE | 2020-09-08 14:16 | NUR ---
Discharge: Teaching verbal and written. Reviewed medications, follow-up, CP, hypomagnesium, AICD, palpitations, ect. Patient verbalized understanding. IV removed without complications, catheter tip intact. All belongings with patient. Prescription for magnesium given to patient.
--- NOTE | 2020-09-08 14:57 | NUR ---
Patient did not call when he was ready to go. Patient left without supervision. All discharge paperwork complete.
[2020-09-08] MEDS ORDERED: PANTOPRAZOLE 40 MG TABLET.DR. PO SCH (21:00)
[2020-09-08] MEDS ORDERED: ATORVASTATIN CALCIUM 20 MG TABLET PO SCH (21:00)
[2020-09-09] MEDS ORDERED: APIXABAN 5 MG TABLET. PO SCH (09:00)
== END 2020-09-08 14:30 | disposition home or self-care (01) ==
LOC: ER 22:25 → 2 SOUTH 09-08 01:24 → ER 09-08 01:59
PROVIDERS: ADMIT Internal Medicine; ATTEND Internal Medicine
DX: I49.9 Cardiac arrhythmia, unspecified (principal); E83.42 Hypomagnesemia; I25.10 Atherosclerotic heart disease of native coronary artery without angina pectoris; I25.5 Ischemic cardiomyopathy; I13.2 Hypertensive heart and chronic kidney disease with heart failure and with stage 5 chronic kidney disease, or end stage renal disease; I50.9 Heart failure, unspecified; N18.6 End stage renal disease; E11.22 Type 2 diabetes mellitus with diabetic chronic kidney disease; I48.0 Paroxysmal atrial fibrillation; K21.9 Gastro-esophageal reflux disease without esophagitis; E78.00 Pure hypercholesterolemia, unspecified; E78.5 Hyperlipidemia, unspecified; Z79.01 Long term (current) use of anticoagulants; Z86.73 Personal history of transient ischemic attack (TIA), and cerebral infarction without residual deficits; Z85.46 Personal history of malignant neoplasm of prostate; Z87.19 Personal history of other diseases of the digestive system; Z95.1 Presence of aortocoronary bypass graft; Z95.810 Presence of automatic (implantable) cardiac defibrillator; Z94.0 Kidney transplant status; Z98.890 Other specified postprocedural states; Z86.19 Personal history of other infectious and parasitic diseases
CPT/HCPCS: 36415; 71045; 80048; 83735; 83880; 84484; 85025; 93005; 96365; 96366; 99285; G0378; J3475; J7512; G0379

== ENCOUNTER → 2020-12-10 | Day surgery (SDC) | payer OTHER, MEDICARE ==
[~2020-12-10] VITALS: Ht 190.5 cm; Wt 224.0 kg
[~2020-12-10] MED LIST changes: +AMLO10TA4 PO; +ATOR20TA58 PO; +CARV25TA PO; +IV RINGERS,LACTATED 1000ML 1,000 ML IV SCH; +LIDOCAINE 2% PF 5 ML VIAL. ONE; +MAGN400T5 PO; +MYCOPHENOLIC ACID; +OMEP40CA7 PO; +PRED-220 PO; +PROPOFOL 10 MG/ML (20ML) VIAL. IV ONE
[2020-12-10 06:31] VITALS: BP 130/74
[2020-12-10 08:35] VITALS: BP 132/70
--- NOTE | 2020-12-14 18:06 | PATHOLOGY ---
[facility] Accession Number: [id number] . 01 Material submitted: . stomach - ANTRUM BIOPSY . 01 Clinical history: . DYSPHAGIA,GERD EGD FOR A- R/O GASTRIC METAPLASIA . 02 Diagnosis: Gastric biopsies, antrum: - Chronic gastritis, mild to moderate. (JPM:[facility]; 12/14/2020) P 12/14/2020 1628 Local . 02 Comment: Sections of the gastric biopsy reveal segments of gastric body and gastric antral/body transition mucosa. The specimen consists predominantly of gastric body mucosa which shows congestion and mild superficial chronic inflammation. The gastric antral/body transition mucosa shows congestion and mild to moderate chronic inflammation. A properly controlled immunoperoxidase stain for Helicobacter is obtained. No Helicobacter organisms are identified. There is no evidence of intestinal metaplasia, dysplasia, or malignancy. (JPM:[facility]; 12/14/2020) . Special stain performed: Immunoperoxidase for Helicobacter on A1. . 02 Electronically signed: . Alexis Brand MD, Pathologist NPI- [id number] . 01 Gross description: . Received in formalin labeled "Haroldo, Matt, antrum biopsy" are multiple trujillo-brown soft tissue fragments measuring in aggregate 1.6 x 1.2 x 0.3 cm. The specimen is submitted entirely in A1. ([facility]; 12/13/2020) GZA/GZA 12/13/2020 1023 Local . 02 Pathologist provided ICD-10: K29.50 . 02 CPT . 345362, [id number] Specimen Comment: A courtesy copy of this report has been sent to [phone], [phone] Specimen Comment: [id number] Specimen Comment: Report sent to / DR GOODMAN Specimen Comment: A duplicate report has been generated due to demographic updates. Performed at: 01 [facility] [address] [facility] [address], [place] [id number] MD Rj Muse MD Phone: [phone] Performed at: 02 [facility] [address] [place], [place] [id number] MD Alexis Brand MD Phone: [phone]
== END | disposition home or self-care (01) ==
LOC: ENDOS 05:52
PROVIDERS: ATTEND Internal Medicine Gastroenterology
DX: R13.10 Dysphagia, unspecified (principal); K29.50 Unspecified chronic gastritis without bleeding; K31.89 Other diseases of stomach and duodenum; K21.9 Gastro-esophageal reflux disease without esophagitis; I10 Essential (primary) hypertension; I25.10 Atherosclerotic heart disease of native coronary artery without angina pectoris; E78.00 Pure hypercholesterolemia, unspecified; E11.9 Type 2 diabetes mellitus without complications; Z87.891 Personal history of nicotine dependence; Z79.82 Long term (current) use of aspirin; Z79.84 Long term (current) use of oral hypoglycemic drugs; Z79.899 Other long term (current) drug therapy; Z98.890 Other specified postprocedural states
CPT/HCPCS: 43239; 43450; 88305; 88342; J2704

== ENCOUNTER 2021-02-27 20:33 | Emergency (ER) | payer OTHER, MEDICARE ==
[~2021-02-27] VITALS: Ht 190.5 cm; Wt 115.0 kg
[~2021-02-27 20:33] MED LIST changes: -IV RINGERS,LACTATED 1000ML 1,000 ML IV SCH; -LIDOCAINE 2% PF 5 ML VIAL. ONE; -PROPOFOL 10 MG/ML (20ML) VIAL. IV ONE
--- NOTE | 2021-02-27 21:45 | RAD ---
INDICATION: Reason: L elbow pain after fall / Spl. Instructions: / History: COMPARISON: None. IMPRESSION: Left elbow: 3 views obtained. There are multiple ossific fragment seen posterior to the elbow joint w hich could be secondary to fracture fragments of unknown age. This is near the expected location of t he triceps tendon. Other possible causes would include calcifications within the soft tissues. There is swelling overlying the olecranon which could be secondary to soft tissue hematoma, soft tissue swe lling or olecranon bursitis. No evidence of dislocation at the elbow joint. Electronically signed by: Sal Kaplan MD (02/27/2021 9:43 PM) [id number]
[2021-02-27 22:02] VITALS: BP 158/77
--- NOTE | 2021-02-27 22:20 | ED.ADGEN ---
Past Medical History Past Medical History: Cancer, High Cholesterol, Hypertension Past Surgical History: Coronary Bypass Surgery Additional Past Surgical Histo: KIDNEY TRANSPLANT, defibrilator Smoking Status: Former Smoker Alcohol Use: None General Adult EDM: Chief Complaint: MECHANICAL FALL HPI: HPI: Patient is a 65 year old AA male who presents emergency department with complaints of left elbow pain that weakness of his left arm after he slept in fell while trying to catch a ball and landed on his elbow. Patient reports having spasm in his left arm whenever he tries to bend it. He currently rates the pain a 5 out of 10 on the pain scale, he denies any numbness, tingling, or decreased sensation in the extremity. Patient reports that he is dominantly right-handed. He denies any head neck or back pain after the fall. Patient denies any loss of consciousness, nausea, or vomiting. Review of Systems: Review of Systems: Complete ROS is negative unless otherwise noted in the HPI. Current Medications: Current Medications Medications (Trade) Dose Ordered Sig/Jo Ann Start Time Stop Time Status Last Admin Dose Admin Acetaminophen (Tylenol) 500 mg 1X ONCE 02/27/21 22:30 02/27/21 22:31 DC 02/27/21 22:01 500 MG Allergies: Allergies: Allergies Coded Allergies Type Severity Reaction Last Updated Verified No Known Drug Allergies 12/10/20 No Physical Exam: PE: See above Constitutional: Well developed, well nourished, no acute distress, non-toxic appearance. [] HENT: Normocephalic, atraumatic, bilateral external ears normal, nose normal. [] Eyes: PERRLA, EOMI, conjunctiva normal, no discharge. [] Neck: Normal range of motion, no stridor. [] Cardiovascular:Heart rate regular rhythm Lungs & Thorax: Respirations even and unlabored, no retractions, no respiratory distress Abdomen: soft, no tenderness Skin: Warm, dry, no erythema, no rash. [] Extremities: Left elbow: Posterior tenderness to palpation without crepitus or obvious deformity, sensation intact, 2+ radial pulse, cap refill less than 2 seconds, no cyanosis, ROM intact however there is spasming present when the patient flexes his elbow. Neurologic: Alert and oriented X 3, no focal deficits noted. [] Psychologic: Affect normal, judgement normal, mood normal. [] Current Patient Data: Vital Signs: Vital Signs Date Time Temp Pulse Resp B/P (MAP) Pulse Ox O2 Delivery O2 Flow Rate FiO2 02/27/21 22:02 73 18 158/77 (104) 97 Room Air 02/27/21 20:45 99.2 99.2 EKG: EKG: [] Heart Score: C/O Chest Pain: No Radiology/Procedures: Radiology/Procedures: PROCEDURE: ELBOW LEFT 3V INDICATION: Reason: L elbow pain after fall / Spl. Instructions: / History: COMPARISON: None. IMPRESSION: Left elbow: 3 views obtained. There are multiple ossific fragment seen posterior to the elbow joint which could be secondary to fracture fragments of unknown age. This is near the expected location of the triceps tendon. Other possible causes would include calcifications within the soft tissues. There is swelling overlying the olecranon which could be secondary to soft tissue hematoma, soft tissue swelling or olecranon bursitis. No evidence of dislocation at the elbow joint. Electronically signed by: Sal Kaplan MD (02/27/2021 9:43 PM) [id number] [] Course & Med Decision Making: Course & Med Decision Making Pertinent Labs and Imaging studies reviewed. (See chart for details) 0-I spoke with Dr. Newell about the patient, he recommends putting the patient in a sling, no splint is recommended. We will prescribe the patient hydrocodone to take as needed for pain and encourage patient follow-up with Dr. Newell for further evaluation and treatment. Prescription written for hydrocodone. Patient was placed in a sling to the left arm, no neurovascular compromise after splint application. I advised patient that he may take Tylenol and hydrocodone as needed for pain, do not exceed over 4000 mg of Tylenol in a 24-hour, each hydrocodone has 325 mg of Tylenol in it. [] Patient verbalized an understanding of home care, medications, follow-up, and return to ED instructions and was in agreement with the plan of care. Patients Care and treatment plan provided by ER Nurse Practitioner. I was available for consult. Patient's chart reviewed. Dorene Disclaimer: Dorene Disclaimer: This electronic medical record was generated, in whole or in part, using a voice recognition dictation system. Departure Departure Impression: Primary Impression: Closed fracture of left elbow Disposition: HOME / SELF CARE / HOMELESS Condition: STABLE Referrals: LUCY GOODMAN MD (PCP) HORTENCIA NEWELL MD Patient Instructions: Elbow Fracture, Simple Additional Instructions: Fill the prescription and take it as directed. You may take Tylenol and hydrocodone as needed for pain, do not exceed 4000 mg of Tylenol in a 24-hour period, each hydrocodone has 325 mg of Tylenol in it. Recommend application of ice, elevation, and rest of affected extremity. Wear the sling that was placed until follow up appointment with Dr. Newell, call in the morning to make your appointment. Return to the ER if your symptoms worsen or fever develops. [] Scripts Hydrocodone Bit/Acetaminophen (HYDROCODONE-APAP 5-325 ) 1 Tab Tablet 1 TAB PO PRN Q6HRS PRN for PAIN for 5 Days, #20 TAB 0 Refills Prov: ROSENANE HANNON APRN 02/27/21 Problem Qualifiers Primary Impression: Closed fracture of left elbow Encounter type: initial encounter Qualified Codes: S42.402A - Unspecified fracture of lower end of left humerus, initial encounter for closed fracture ROSEANNE HANNON APRN Feb 27, 2021 22:20 SALVADOR GROSS DO Mar 03, 2021 18:12
[2021-02-27] MEDS ORDERED: HYDR-2761 PO (22:28)
[2021-02-27] MEDS ORDERED: ACETAMINOPHEN 500 MG TABLET PO ONE (22:30)
== END 2021-02-27 22:41 | disposition home or self-care (01) ==
LOC: ER 20:33
DX: S42.402A Unspecified fracture of lower end of left humerus, initial encounter for closed fracture (principal); I10 Essential (primary) hypertension; E78.00 Pure hypercholesterolemia, unspecified; Z95.1 Presence of aortocoronary bypass graft; Z87.891 Personal history of nicotine dependence; Y93.89 Activity, other specified; W18.39XA Other fall on same level, initial encounter; Y92.89 Other specified places as the place of occurrence of the external cause; Y99.8 Other external cause status
CPT/HCPCS: 73080; 99283; A4565

== ENCOUNTER 2021-03-23 22:18 | Emergency (ER) | payer OTHER, MEDICARE ==
[~2021-03-23] VITALS: Ht 188 cm; Wt 200.0 kg
[2021-03-24 01:16] VITALS: BP 154/76
[2021-03-24 01:47] LABS: BILIRUBIN,URINE NEGATIVE (NEG); CLARITY,URINE TURBID; COLOR,URINE YELLOW; NITRITE,URINE NEGATIVE (NEG); PROTEIN,URINE 100 mg/dL (NEG-TRACE); UROBILINOGEN,URINE 0.2 mg/dL (0.2 mg/dL)
[2021-03-24 01:55] LABS: RBC,URINE 20-40 /HPF (0-2); WBC,URINE TNTC /HPF (0-4)
[2021-03-24 01:56] LABS: BACTERIA,URINE FEW /HPF (0-FEW)
[2021-03-24 01:57] LABS: BASO # 0.1 x10^3/uL (0.0-0.2); BASO % 1 % (0-3); EOS # 0.1 x10^3/uL (0.0-0.7); EOS % 1 % (0-3); HEMATOCRIT 39.8 % (39.0-53.0); HEMOGLOBIN 13.5 g/dL (13.0-17.5); LYMPH # 1.9 x10^3/uL (1.0-4.8); LYMPH % 29 % (24-48); MEAN CORPUSCULAR HEMOGLOBIN 30 pg (25-35); MEAN CORPUSCULAR HGB CONC 34 g/dL (31-37); MEAN CORPUSCULAR VOLUME 88 fL (79-100); MONO # 0.8 x10^3/uL (0.0-1.1); MONO % 13 % (0-9); NEUT # 3.6 x10^3/uL (1.8-7.7); NEUT % 56 % (31-73); PLATELET COUNT 185 x10^3/uL (140-400); RED BLOOD COUNT 4.54 x10^6/uL (4.30-5.70); WHITE BLOOD COUNT 6.5 x10^3/uL (4.0-11.0)
[2021-03-24 02:05] LABS: CALCIUM 9.7 mg/dL (8.5-10.1); CREATININE 1.2 mg/dL (0.7-1.3); GFR 73.1; POTASSIUM 4.1 mmol/L (3.5-5.1)
[2021-03-24] MEDS ORDERED: CEFP200T PO (02:55)
--- NOTE | 2021-03-24 02:57 | PHYS DOC ---
Past Medical History Past Medical History: Cancer, High Cholesterol, Hypertension Additional Past Medical Histor: KIDNEY DISEASE Past Surgical History: Coronary Bypass Surgery Additional Past Surgical Histo: KIDNEY TRANSPLANT, defibrilator Smoking Status: Former Smoker Alcohol Use: None General Adult EDM: Chief Complaint: ABDOMINAL PAIN HPI: HPI: 65-year-old male past medical history renal failure with renal transplant (3 years ago [address] Major) and prostate cancer, presents to the ED with complaints of painful urination and increased urinary frequency for the past 3 days with associated suprapubic pain. Patient reports no sexual activity 2/2 erectile dysfunction after radical prostatectomy. Review of Systems: Review of Systems: Constitutional: Denies fever or chills. [] Eyes: Denies change in visual acuity. [] HENT: Denies nasal congestion or sore throat. [] Respiratory: Denies cough or shortness of breath. [] Cardiovascular: Denies chest pain or edema. [] GI: Denies nausea, vomiting, : Denies hematuria or incontinence Musculoskeletal: Denies back pain or flank pain Integument: Denies rash or diaphoresis Neurologic: Denies headache, focal weakness or sensory changes. [] Lymphatic: Denies swollen glands. [] Psychiatric: Denies depression or anxiety. [] Heart Score: C/O Chest Pain: No Risk Factors: Risk Factors: DM, Current or recent (<one month) smoker, HTN, HLP, family history of CAD, obesity. Risk Scores: Score 0 - 3: 2.5% MACE over next 6 weeks - Discharge Home Score 4 - 6: 20.3% MACE over next 6 weeks - Admit for Clinical Observation Score 7 - 10: 72.7% MACE over next 6 weeks - Early Invasive Strategies Allergies: Allergies: Allergies Coded Allergies Type Severity Reaction Last Updated Verified No Known Drug Allergies 12/10/20 No Physical Exam: PE: Constitutional: Well developed, well nourished, no acute distress, non-toxic appearance. HENT: Normocephalic, atraumatic, Eyes: EOMI, conjunctiva normal, no discharge. Neck: Normal range of motion, supple, Cardiovascular: S1/2 present, regular rhythm Lungs & Thorax: Speaking in full sentences, bilateral equal chest rise, no tachypnea or increased work of breathing Abdomen: soft, no tenderness, Skin: Warm, dry, no erythema, no rash. [] Back: No tenderness, no CVA tenderness. [] Extremities: No tenderness, no cyanosis, no lower extremity edema Neurologic: Alert and oriented X 3, normal motor function, normal sensory function, no focal deficits noted. [] Psychologic: Affect normal, judgement normal, mood normal. [] : pt declined Current Patient Data: Labs: Laboratory Tests Test 03/23/21 22:26 03/24/21 01:50 Urine Collection Type Unknown Urine Color Yellow Urine Clarity Turbid Urine pH 6.0 (<5.0-8.0) Urine Specific [place] 1.020 (1.000-1.030) Urine Protein 100 mg/dL (NEG-TRACE) Urine Glucose (UA) Negative mg/dL (NEG) Urine Ketones (Stick) Negative mg/dL (NEG) Urine Blood Large (NEG) Urine Nitrite Negative (NEG) Urine Bilirubin Negative (NEG) Urine Urobilinogen Dipstick 0.2 mg/dL (0.2 mg/dL) Urine Leukocyte Esterase Large (NEG) Urine RBC 20-40 /HPF (0-2) Urine WBC Tntc /HPF (0-4) Urine Squamous Epithelial Cells Occ /LPF Urine Bacteria Few /HPF (0-FEW) White Blood Count 6.5 x10^3/uL (4.0-11.0) Red Blood Count 4.54 x10^6/uL (4.30-5.70) Hemoglobin 13.5 g/dL (13.0-17.5) Hematocrit 39.8 % (39.0-53.0) Mean Corpuscular Volume 88 fL (79-100) Mean Corpuscular Hemoglobin 30 pg (25-35) Mean Corpuscular Hemoglobin Concent 34 g/dL (31-37) Red Cell Distribution Width 15.0 % (11.5-14.5) H Platelet Count 185 x10^3/uL (140-400) Neutrophils (%) (Auto) 56 % (31-73) Lymphocytes (%) (Auto) 29 % (24-48) Monocytes (%) (Auto) 13 % (0-9) H Eosinophils (%) (Auto) 1 % (0-3) Basophils (%) (Auto) 1 % (0-3) Neutrophils # (Auto) 3.6 x10^3/uL (1.8-7.7) Lymphocytes # (Auto) 1.9 x10^3/uL (1.0-4.8) Monocytes # (Auto) 0.8 x10^3/uL (0.0-1.1) Eosinophils # (Auto) 0.1 x10^3/uL (0.0-0.7) Basophils # (Auto) 0.1 x10^3/uL (0.0-0.2) Sodium Level 141 mmol/L (136-145) Potassium Level 4.1 mmol/L (3.5-5.1) Chloride Level 106 mmol/L (98-107) Carbon Dioxide Level 26 mmol/L (21-32) Anion Gap 9 (6-14) Blood Urea Nitrogen 19 mg/dL (8-26) Creatinine 1.2 mg/dL (0.7-1.3) Estimated GFR (Cockcroft-Gault) 73.1 Glucose Level 132 mg/dL (70-99) H Calcium Level 9.7 mg/dL (8.5-10.1) Laboratory Tests 03/24/21 01:50 Laboratory Tests 03/24/21 01:50 Vital Signs: Vital Signs Date Time Temp Pulse Resp B/P (MAP) Pulse Ox O2 Delivery O2 Flow Rate FiO2 03/24/21 01:16 63 18 154/76 (102) Room Air 03/24/21 00:05 98 EKG: EKG: [] Radiology/Procedures: Radiology/Procedures: [] Course & Med Decision Making: Course & Med Decision Making Pertinent Labs and Imaging studies reviewed. (See chart for details) Concern for urinary tract infection, considered hemorrhagic cystitis/recent infection in a renal transplant patient. Kidney function unremarkable. Patient would not wait for any further emergency department instructions stating he had to be at work at time and will follow up with his transplant surgeon at . Labs with gross hematuria-CT abdomen pelvis without contrast was pending. Temperature never documented on vital signs. I was unable to convince patient to stay-was able to electronically send prescription. The patient has decided to leave our facility against medical advice. I have assessed patient's ability to make informed decision and feel the patient has the capacity to comprehend information regarding the current medical condition and appreciates the impact of the disease or condition and the consequences of various options for treatment, including foregoing treatment. The patient possesses the ability to evaluate all treatment options, comparing the risks and benefits of each option, communicate his or her choice in a consistent manner over time, and is able to make rational choices. I explained to the patient further testing, treatment, and evaluation I would like to perform in the emergency department visit as well as any possible alternatives that can be accomplished in a timely manner. I have outlined the possible risks of foregoing any or all of these interventions and the patient understands and acknowledges that the decision to leave may result in undesirable consequences such as , permanent disability, and/or loss of current lifestyle. Even though leaving AMA is not ideal, I have instructed the patient to follow any discharge instructions given, take any medications prescribed, and resume care as soon as possible with another provider. This conversation was witnessed by another member of the emergency department staff and we clearly communicated the patient is welcome to return anytime to continue care at our facility.] Dragon Disclaimer: Dragon Disclaimer: This electronic medical record was generated, in whole or in part, using a voice recognition dictation system. Departure Departure Impression: Primary Impression: UTI (urinary tract infection) Additional Impressions: Hematuria Left against medical advice Disposition: 07 LEFT AGAINST MEDICAL ADVICE Condition: STABLE Referrals: LUCY GOODMAN MD (PCP) Follow-up with your primary care physician in 24 to 48 hours OR FOLLOW UP WITH FAMILY MEDICINE: [address] [facility], [facility] [address] [place] [address] Patient Instructions: Discharge Against Medical Advice, Hematuria, Adult, Urinary Tract Infection Additional Instructions: FOLLOW UP WITH NEPHROLOGY: FOR DEFINITIVE MANAGEMENT [place] [address] [place] [address] EMERGENCY DEPARTMENT GENERAL DISCHARGE INSTRUCTIONS Thank you for coming to [facility] Emergency Department (ED) today and trusting us with you care. We trust that you had a positive experience in our Emergency Department. If you wish to speak to the department management, you may call the Director at [phone]. YOUR FOLLOW UP INSTRUCTIONS ARE FOLLOWS: 1. Do you have a private Doctor? If you do not have a private doctor, please ask for a resource list of physicians or clinics that may be able to assist you with follow up care. 2. The Emergency Physicain has interpreted your x-rays. The X-Ray specialist will also review them. If there is a change in the findings, you will be notified in 48 hours when at all possible. 3. A lab test or culture has been done, your results will be reviewed and you will be notified if you need a change in treatment. ADDITIONAL INSTRUCTIONS AND INFORMATION: 1. Your care today has been supervised by a physician who is specially trained in emergency care. Many problems require more than one evaluation for a complete diagnosis and treatment. We recommend that you schedule your follow up appointment as recommended to ensure complete treatment of you illness or injury. If you are unable to obtain follow up care and continue to have a problem, or if your condition worsens, we recommend that you return to the ED. 2. We are not able to safely determine your condition over the phone nor are we able to give sound medical advice over the phone. For these safety reasons, if you call for medical advice we will ask you to come to the ED for further evaluation. 3. If you have any questions regarding these discharge instructions please call the ED at [phone]. SAFETY INFORMATION: In the interest of safety, wellness, and injury prevention; we encourage you to wear your sealbelt, if you smoke; quite smoking, and we encourage family to use a protective helmet for bicycling and other sporting events that present an increased risk for head injury. IF YOUR SYMPTOMS WORSEN OR NEW SYMPTOMS DEVELOP, OR YOU HAVE CONCERNS ABOUT YOUR CONDITION; OR IF YOUR CONDITION WORSENS WHILE YOU ARE WAITING FOR YOUR FOLLOW UP APPOINTMENT; EITHER CONTACT YOUR PRIMARY CARE DOCTOR, THE PHYSICIAN WHOSE NAME AND NUMBER YOU WERE GIVEN, OR RETURN TO THE ED IMMEDIATELY. Scripts Cefpodoxime Proxetil (CEFPODOXIME PROXETIL) 200 Mg Tablet 1 TAB PO BID for 14 Days, #28 TAB Prov: JELANI SKY DO 03/24/21 JELANI SKY DO Mar 24, 2021 02:57
== END 2021-03-24 02:56 | disposition left against medical advice (07) ==
LOC: ER 22:18
DX: N39.0 Urinary tract infection, site not specified (principal); R31.9 Hematuria, unspecified; E78.00 Pure hypercholesterolemia, unspecified; I10 Essential (primary) hypertension; Z95.1 Presence of aortocoronary bypass graft; Z87.891 Personal history of nicotine dependence; Z94.0 Kidney transplant status
CPT/HCPCS: 36415; 80048; 81001; 85025; 87077; 87086; 87186; 99283

== ENCOUNTER → 2021-04-05 | Outpatient (CLI) | payer OTHER, MEDICARE ==
[2021-03-24 01:16] VITALS: BP 154/76
[~2021-04-05] MED LIST changes: +CEFP200T PO
--- NOTE | 2021-04-05 14:00 | KCIC ---
EXAM: CT left elbow without contrast DATE: 04/05/2021 10:24 AM COMPARISON: 02/27/2021 INDICATION: Reason: Left elbow pain post fall 03/2021. / Spl. Instructions: / History: Pain w/extens ion, and pushing down. TECHNIQUE: CT of the left elbow was performed without IV contrast. Axial, coronal and sagittal reform atted images were generated. PQRS compliance statement - One or more of the following individualized dose reduction techniques wer e utilized for this study: 1. Automated exposure control 2. Adjustment of the mA and/or kV according to patient size 3. Use of iterative reconstruction technique FINDINGS: There is moderate soft tissue swelling at the dorsal aspect of the left elbow. Small ossification is seen at the dorsal right elbow approximately 4 cm proximal from the olecranon likely avulsed fragment s. There is a small collection in this region measuring approximately 3.6 x 1.8 x 3.7 cm, likely billy carmelo. The triceps tendon silhouette is not well seen suspicious for triceps tendon avulsion. No significant elbow joint effusion. Mild soft tissue swelling about the medial and lateral epicondyl es. Ectatic vessels in the subcutaneous tissues anteriorly. IMPRESSION: Triceps tendon avulsion is suspected at the dorsal olecranon with small bony fragments seen approxima tely 4 cm from the attachment. Consider further evaluation with ultrasound or MRI to further profile extent of tear. Electronically signed by: Aristeo Shelton MD (04/05/2021 12:54 PM) [facility]
== END ==
LOC: KCIC CT 10:21
PROVIDERS: ATTEND Orthopaedic Surgery
DX: M25.522 Pain in left elbow (principal); M79.89 Other specified soft tissue disorders
CPT/HCPCS: 73200

== ENCOUNTER → 2021-09-19 | Outpatient (CLI) | payer MEDICARE, OTHER ==
[~2021-09-19] MED LIST changes: +MAGN400T48 PO; -MAGN400T5 PO
--- NOTE | 2021-09-19 17:33 | RAD ---
XR HIP (WITH OR WITHOUT PELVIS) RIGHT 1 VIEW Clinical Indication: Reason: PAIN RIGHT HIP AFTER RECENT FALL / : Comparison: None. Findings: There is no acute fracture or dislocation of the right hip. There is mild arthropathy of the bilatera l hips. The sacroiliac joints are partially fused bilaterally. There are multiple surgical clips in t he right pelvis. There is endplate spurring of the visualized lower lumbar spine. Arterial calcificat ions are noted. No acute pelvic fracture is seen. IMPRESSION: No acute fracture or dislocation of the right hip. Electronically signed by: Audie Murray MD (09/19/2021 5:30 PM) [id number]
--- NOTE | 2021-09-19 17:36 | RAD ---
XR KNEE_AP BILAT STANDING Clinical Indication: Reason: DJD OF KNEE JOINTS / Spl. Instructions: / History: Comparison: None. Findings: AP standing views only. There is severe narrowing of the right medial compartment. There is mild narr owing of the left medial compartment. No acute fracture is identified. There are bilateral arterial c alcifications. There are surgical clips probably from vein harvesting in the medial left calf. IMPRESSION: There is severe narrowing of the medial compartment of the right knee. Electronically signed by: Audie Murray MD (09/19/2021 5:34 PM) [id number]
== END ==
LOC: RAD 13:28
PROVIDERS: ATTEND Physical Medicine & Rehabilitation
DX: M12.852 Other specific arthropathies, not elsewhere classified, left hip (principal); M12.851 Other specific arthropathies, not elsewhere classified, right hip; M25.861 Other specified joint disorders, right knee; M25.862 Other specified joint disorders, left knee; M46.06 Spinal enthesopathy, lumbar region
CPT/HCPCS: 73501; 73565